=== PATIENT | female | born 2000 | race Caucasian/White ===

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

== ENCOUNTER 2025-02-21 06:39 | Emergency (ER) | payer MEDICAID, OTHER ==
[~2025-02-21] VITALS: Ht 170.2 cm; Wt 55.9 kg
[2025-02-21 06:44] VITALS: TEMP 98.4
[2025-02-21] MEDS ORDERED: IBUP-1492 PO (07:53)
[2025-02-21] MEDS ORDERED: METH-659 PO (07:53)
[2025-02-21 08:15] VITALS: BP 101/68; PULSE 85; RESP 16; O2SAT 98
== END 2025-02-21 08:17 | disposition home or self-care (01) ==
LOC: EMS 06:41
DX: S46.811A Strain of other muscles, fascia and tendons at shoulder and upper arm level, right arm, initial encounter (principal); Z79.899 Other long term (current) drug therapy; W01.0XXA Fall on same level from slipping, tripping and stumbling without subsequent striking against object, initial encounter; Y93.89 Activity, other specified; Y92.89 Other specified places as the place of occurrence of the external cause; Y99.8 Other external cause status
CPT/HCPCS: 99284; 73030-TC; 73060-TC; 73080-TC; Z7502

== ENCOUNTER 2025-03-01 17:22 | Emergency (ER) | payer MEDICAID ==
[~2025-03-01] VITALS: Ht 165.1 cm; Wt 59.1 kg
[~2025-03-01 17:22] MED LIST: IBUP-1492 PO; METH-659 PO
[2025-03-01 17:24] VITALS: BP 112/66; PULSE 79; RESP 18; TEMP 98.2; O2SAT 98
== END 2025-03-01 17:33 | disposition left against medical advice (07) ==
LOC: EMS 17:24
DX: R07.81 Pleurodynia (principal); Z53.21 Procedure and treatment not carried out due to patient leaving prior to being seen by health care provider
CPT/HCPCS: 99281; Z7502